=== PATIENT | female | born 2000 ===

== ENCOUNTER 2018-09-18 11:42 | Inpatient (IN) | payer SELFPAY ==
[2018-09-18] MEDS ORDERED: Carboprost Tromethamine 250 MCG/1 ML Amp IM PRN (22:52)
[2018-09-18] MEDS ORDERED: Misoprostol 200 MCG Tab PO PRN (22:52)
[2018-09-18] MEDS ORDERED: Lidocaine 1% 50 ML MDV INJECT PRN (22:52)
[2018-09-18] MEDS ORDERED: Sodium Chloride 0.9% 2.5 ML Syringe FLUSH PRN (22:52)
[2018-09-18] MEDS ORDERED: Butorphanol 1 MG/ML SDV IVPUSH PRN (22:52)
[2018-09-18] MEDS ORDERED: Ondansetron 4 MG/2 ML SDV IV PRN (22:52)
[2018-09-18] MEDS ORDERED: Sodium Chloride 0.9% 10 ML SDV IV PRN (22:52)
[2018-09-18] MEDS ORDERED: Tranexamic Acid 1,000 MG in Sodium Chloride 0.9% 100 ML IV PRN (22:52)
[2018-09-18] MEDS ORDERED: Sodium Chloride 0.9% 10 ML Syringe FLUSH PRN (22:52)
[2018-09-18] MEDS ORDERED: Methylergonovine 0.2 MG/1 ML Amp IM PRN (22:52)
[2018-09-18] MEDS ORDERED: Ampicillin 2 GM in Sodium Chloride 0.9% 100 ML IV ONE (22:52)
[2018-09-18] MEDS ORDERED: Water For Irrigation,Sterile 1,000 ML Container IRR PRN (22:52)
[2018-09-18] MEDS ORDERED: Lactated Ringers 1,000 ML IV SCH (23:00)
[2018-09-18] MEDS ORDERED: Oxytocin/0.9 % Sodium Chloride 30 UNIT/500 ML BAG IV SCH (23:00)
[2018-09-19] MEDS: Ampicillin 1 GM in Sodium Chloride 0.9% 50 ML IV SCH ×2 (03:49→07:45)
--- NOTE | 2018-09-19 09:15 | PCM.LDHP ---
L&D History of Present Illness - General Date of Service: 09/19/18 Admit Problem/Dx: Patient Status Order with Admit Dx/Problem 09/18/18 21:56 Patient Status [ADT] Routine 09/18/18 22:52 Patient Status [ADT] Routine Admission Diagnosis/Problem Admission Diagnosis/Problem Source of Information: Patient History Limitations: Reports: No Limitations - History of Present Illness Improves with: Reports: None Worsens with: Reports: None Associated Symptoms: Reports: N - Related Data Allergies/Adverse Reactions: Allergies Allergy/AdvReac Type Severity Reaction Status Date / Time No Known Allergies Allergy Verified 09/18/18 21:55 Past Medical History - Past Health History Medical/Surgical History: Denies Medical/Surgical History HEENT History: Reports: None Cardiovascular History: Reports: None Respiratory History: Reports: None Gastrointestinal History: Reports: None Genitourinary History: Reports: None HEAD OF ART History: Reports: Musculoskeletal History: Reports: None Neurological History: Reports: None Psychiatric History: Reports: None Endocrine/Metabolic History: Reports: None Hematologic History: Reports: None Immunologic History: Reports: None Oncologic (Cancer) History: Reports: None Dermatologic History: Reports: None - Infectious Disease History Infectious Disease History: Reports: None - Past Surgical History Head Surgeries/Procedures: Reports: None HEENT Surgical History: Reports: None GI Surgical History: Reports: None Female Surgical History: Reports: None Endocrine Surgical History: Reports: None Neurological Surgical History: Reports: None Musculoskeletal Surgical History: Reports: None Oncologic Surgical History: Reports: None Dermatological Surgical History: Reports: None Social & Family History - Family History HEENT: Reports: None Cardiac: Reports: Other (See Below) Other Cardiac Family History: Low blood pressure Respiratory: Reports: None GI: Reports: None : Reports: None OBGYN: Reports: None Neurological: Reports: None Psychiatric: Reports: None Endocrine/Metabolic: Reports: None Hematologic: Reports: None Immunologic: Reports: None Dermatologic: Reports: None Oncologic: Reports: None - Tobacco Use Smoking Status *Q: Never Smoker Second Hand Smoke Exposure: No - Caffeine Use Caffeine Use: Reports: Coffee, Soda - Recreational Drug Use Recreational Drug Use: No H&P Review of Systems - Review of Systems: Review Of Systems: See Below General: Reports: No Symptoms HEENT: Reports: No Symptoms Pulmonary: Reports: No Symptoms Cardiovascular: Reports: No Symptoms Gastrointestinal: Reports: No Symptoms Genitourinary: Reports: No Symptoms Musculoskeletal: Reports: No Symptoms Skin: Reports: No Symptoms Psychiatric: Reports: No Symptoms Neurological: Reports: No Symptoms Hematologic/Lymphatic: Reports: No Symptoms Immunologic: Reports: No Symptoms L&D Exam - Exam Exam: See Below - Vital Signs Weight: 83.007 kg - OB Specific Contraction Intensity: Moderate Movement: Active Heart Tones: Present Presentation: Vertex - Keenan Score Keenan Score Cervix Position: Anterior Keenan Score Consistency: Soft Keenan Score Effacement: >80% Keenan Score Dilation: > 5 cm Keenan Score 's Station: -1 ,0 Keenan Score Total: 12 - Exam General: Alert, Oriented HEENT: PERRLA, Conjunctiva Clear, EACs Clear, EOMI, Hearing Intact, Mucosa Moist & [place], Nares Patent, Normal Nasal Septum, Posterior Pharynx Clear, TMs Clear Neck: Supple, Trachea Midline Lungs: Clear to Auscultation, Normal Respiratory Effort Cardiovascular: Regular Rate, Regular Rhythm GI/Abdominal Exam: Normal Bowel Sounds, Soft, Non-Tender, No Organomegaly, No Distention, No Abnormal Bruit, No Mass, Pelvis Stable Rectal Exam: Normal Exam, Normal Rectal Tone Genitourinary: Normal external exam, Normal bimanual exam, Normal speculum exam Back Exam: Normal Inspection, Full Range of Motion Extremities: Normal Inspection, Normal Range of Motion, Non-Tender, No Pedal Edema, Normal Capillary Refill Skin: Warm, Dry, Intact Neurological: Cranial Nerves Intact, Reflexes Equal Bilateral Psychiatric: Alert, Normal Affect, Normal Mood - Patient Data Lab Results Last 24 hrs: Laboratory Results - last 24 hr 09/18/18 09/18/18 Range/Units 23:22 23:22 WBC 9.71 (4.0-11.0) K/uL RBC 4.25 L (4.30-5.90) M/uL Hgb 13.6 (12.0-16.0) g/dL Hct 39.9 (36.0-46.0) % MCV 93.9 (80.0-98.0) fL MCH 32.0 (27.0-32.0) pg MCHC 34.1 (31.0-37.0) g/dL RDW Std Deviation 42.0 (28.0-62.0) fl RDW Coeff of Faizan 13 (11.0-15.0) % Plt Count 241 (150-400) K/uL MPV 11.80 (7.40-12.00) fL Nucleated RBC % 0.0 /100WBC Nucleated RBCs # 0 K/uL Blood Type O POSITIVE Antibody Screen NEGATIVE Result Diagrams: 09/18/18 23:22 Problem List Initiated/Reviewed/Updated: Yes Orders Last 24hrs: Active Orders 24 hr Category Date Time Status Patient Status [ADT] Routine ADT 09/18/18 22:52 Active May Shower [RC] ASDIRECTED Care 09/18/18 22:52 Active Notify Provider [RC] PRN Care 09/18/18 22:52 Active Up ad Lizzeth [RC] ASDIRECTED Care 09/18/18 22:52 Active Vital Signs [RC] PER UNIT ROUTINE Care 09/18/18 21:56 Active Vital Signs [RC] PER UNIT ROUTINE Care 09/18/18 22:52 Active Ampicillin 1 gm Med 09/19/18 03:45 Active Sodium Chloride 0.9% [Normal Saline] 50 ml IV Q4H Butorphanol [Stadol] Med 09/18/18 22:52 Active 1 mg IVPUSH Q1H PRN Carboprost Tromethamine [Hemabate DS] Med 09/18/18 22:52 Active 250 mcg IM ASDIRECTED PRN Lactated Ringers [Ringers, Lactated] 1,000 ml Med 09/18/18 23:00 Active IV ASDIRECTED Lidocaine 1% [Xylocaine 1%] Med 09/18/18 22:52 Active 50 ml INJECT ONETIME PRN Methylergonovine [Methergine] Med 09/18/18 22:52 Active 0.2 mg IM ASDIRECTED PRN Ondansetron [Zofran] Med 09/18/18 22:52 Active 4 mg IV Q6H PRN Oxytocin/0.9 % Sodium Chloride [Oxytocin 30 Unit/500 ML Med 09/18/18 23:00 Active -NS] 30 unit in 500 ml IV TITRATE Sodium Chloride 0.9% [Normal Saline] Med 09/18/18 22:52 Active 10 ml IV ASDIRECTED PRN Sodium Chloride 0.9% [Saline Flush] Med 09/18/18 22:52 Active 10 ml FLUSH ASDIRECTED PRN Sodium Chloride 0.9% [Saline Flush] Med 09/18/18 22:52 Active 2.5 ml FLUSH ASDIRECTED PRN Tranexamic Acid [Cyklokapron] 1,000 mg Med 09/18/18 22:52 Active Sodium Chloride 0.9% [Normal Saline] 100 ml IV ONETIME Water For Irrigation,Sterile [Sterile Water for Med 09/18/18 22:52 Active Irrigation] 1,000 ml IRR ASDIRECTED PRN miSOPROStol [Cytotec] Med 09/18/18 22:52 Active 200 mcg PO ONETIME PRN Scalp Electrode [WOMSER] Per Unit Routine Oth 09/18/18 22:52 Ordered Peripheral IV Insertion Adult [OM.PC] Routine Oth 09/18/18 22:52 Ordered Resuscitation Status Routine Resus Stat 09/18/18 21:56 Ordered Medication Orders Butorphanol Tartrate (Stadol) 1 mg IVPUSH Q1H PRN PRN Reason: Pain Carboprost Tromethamine (Hemabate Ds) 250 mcg IM ASDIRECTED PRN PRN Reason: Post Hemorrhage Tranexamic Acid 1,000 mg/ (Sodium Chloride) 110 mls @ 660 mls/hr IV ONETIME PRN PRN Reason: Bleeding Lactated Ringer's (Ringers, Lactated) 1,000 mls @ 150 mls/hr IV ASDIRECTED [facility] Last Admin: 09/18/18 23:28 Dose: 150 mls/hr Oxytocin/Sodium Chloride (Oxytocin 30 Unit/500 Ml-Ns) 30 unit in 500 mls @ 999 mls/hr IV TITRATE [facility] Ampicillin Sodium 1 gm/ Sodium (Chloride) 50 mls @ 100 mls/hr IV Q4H [facility] Last Admin: 09/19/18 07:45 Dose: 100 mls/hr Infusion: 09/19/18 04:19 Dose: 100 mls/hr Admin: 09/19/18 03:49 Dose: 100 mls/hr Lidocaine HCl (Xylocaine 1%) 50 ml INJECT ONETIME PRN PRN Reason: Laceration repair Methylergonovine Maleate (Methergine) 0.2 mg IM ASDIRECTED PRN PRN Reason: Post Hemorrhage Misoprostol (Cytotec) 200 mcg PO ONETIME PRN PRN Reason: Post Hemorrhage Ondansetron HCl (Zofran) 4 mg IV Q6H PRN PRN Reason: Nausea/Vomiting Sodium Chloride (Saline Flush) 10 ml FLUSH ASDIRECTED PRN PRN Reason: Keep Vein Open Sodium Chloride (Saline Flush) 2.5 ml FLUSH ASDIRECTED PRN PRN Reason: Keep Vein Open Sodium Chloride (Normal Saline) 10 ml IV ASDIRECTED PRN PRN Reason: IV Use Sterile Water (Sterile Water For Irrigation) 1,000 ml IRR ASDIRECTED PRN PRN Reason: delivery
[2018-09-19] MEDS ORDERED: Acetaminophen 500 MG Tab PO PRN ×2 (11:29)
[2018-09-19] MEDS ORDERED: Bisacodyl 10 MG Supp RECTAL PRN (11:29)
[2018-09-19] MEDS ORDERED: Ibuprofen 800 MG Tab PO PRN (11:29)
[2018-09-19] MEDS ORDERED: Lanolin 100% Cream 7 GM Tube TOP PRN (11:29)
[2018-09-19] MEDS ORDERED: Ibuprofen 400 MG Tab PO PRN (11:29)
[2018-09-19] MEDS ORDERED: oxyCODONE 5 MG Tab PO PRN (11:29)
[2018-09-19] MEDS ORDERED: Witch Hazel Medicated Pads 40/Jar TOP PRN (11:29)
[2018-09-19] MEDS ORDERED: Docusate Sodium 100 MG Cap PO PRN (11:29)
[2018-09-19] MEDS ORDERED: Benzocaine/Menthol 20%-0.5% Spray 78 GM Cannister TOP PRN (11:29)
--- NOTE | 2018-09-19 16:11 | OR ---
SURGEON: Dimas Rojas MD DATE OF PROCEDURE: Ms. Gil is a 18-year-old primigravida. She is followed in our clinic. 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 She is term. She is admitted in active labor. At the time of the admission, she was 4 cm complete, vertex. Her GBS status was unknown at this time, so we started her on antibiotic as per protocol. The patient declined to have epidural. She has had regular contractions. She progressed to 7, complete vertex, and I did an artificial rupture of the membrane and clear fluid. The patient continued to progress. Then, she eventually became complete-complete and she was able to accomplish normal spontaneous vaginal delivery. The perineum was intact. There was no labial, perineal, or vaginal laceration. Fetus cried immediately, score and the weight were not available at this time. The placenta delivered spontaneous, complete, and intact without any problem. ESTIMATED BLOOD LOSS: 250 to 300 mL in this . COMPLICATIONS: There was no complication in the care, the labor process, and the delivery. EVIE / GORDO /[id number]
--- NOTE | 2018-09-20 09:41 | PCM.PNPP ---
- General Info Date of Service: 09/20/18 Functional Status: Reports: Pain Controlled - Review of Systems General: Reports: No Symptoms HEENT: Reports: No Symptoms Pulmonary: Reports: No Symptoms Cardiovascular: Reports: No Symptoms Gastrointestinal: Reports: No Symptoms Genitourinary: Reports: No Symptoms Musculoskeletal: Reports: No Symptoms Skin: Reports: No Symptoms Neurological: Reports: No Symptoms Psychiatric: Reports: No Symptoms - General Info Date of Service: 09/20/18 - Patient Data Vital Signs - Most Recent: Last Vital Signs Temp 36.7 C 09/20/18 07:20 Pulse 94 09/20/18 07:20 Resp 16 09/20/18 07:20 BP 122/72 09/20/18 07:20 Pulse Ox 97 09/20/18 07:20 Weight - Most Recent: 83.007 kg Lab Results - Last 24 Hours: Laboratory Results - last 24 hr 09/20/18 Range/Units 05:20 Hgb 10.2 L (12.0-16.0) g/dL Hct 30.3 L (36.0-46.0) % Med Orders - Current: Current Medications Acetaminophen (Tylenol Extra Strength) 500 mg PO Q4H PRN PRN Reason: Pain Acetaminophen (Tylenol Extra Strength) 1,000 mg PO Q4H PRN PRN Reason: Pain Benzocaine/Menthol (Dermoplast Pain Relief 20%-0.5% [place]) 78 gm TOP ASDIRECTED PRN PRN Reason: Perineal Comfort Measure Bisacodyl (Dulcolax) 10 mg RECTAL ONETIME PRN PRN Reason: Constipation Butorphanol Tartrate (Stadol) 1 mg IVPUSH Q1H PRN PRN Reason: Pain Carboprost Tromethamine (Hemabate Ds) 250 mcg IM ASDIRECTED PRN PRN Reason: Post Hemorrhage Docusate Sodium (Colace) 100 mg PO BID PRN PRN Reason: Constipation Emollient Ointment (Lansinoh Hpa) 0 gm TOP ASDIRECTED PRN PRN Reason: Sore Nipples Last Admin: 09/19/18 14:27 Dose: 1 applicful Tranexamic Acid 1,000 mg/ (Sodium Chloride) 110 mls @ 660 mls/hr IV ONETIME PRN PRN Reason: Bleeding Lactated Ringer's (Ringers, Lactated) 1,000 mls @ 150 mls/hr IV ASDIRECTED [facility] Last Admin: 09/18/18 23:28 Dose: 150 mls/hr Oxytocin/Sodium Chloride (Oxytocin 30 Unit/500 Ml-Ns) 30 unit in 500 mls @ 999 mls/hr IV TITRATE [facility] Ampicillin Sodium 1 gm/ Sodium (Chloride) 50 mls @ 100 mls/hr IV Q4H [facility] Last Admin: 09/19/18 07:45 Dose: 100 mls/hr Ibuprofen (Motrin) 400 mg PO Q4H PRN PRN Reason: Pain Ibuprofen (Motrin) 800 mg PO Q6H PRN PRN Reason: Pain Lidocaine HCl (Xylocaine 1%) 50 ml INJECT ONETIME PRN PRN Reason: Laceration repair Methylergonovine Maleate (Methergine) 0.2 mg IM ASDIRECTED PRN PRN Reason: Post Hemorrhage Last Admin: 09/19/18 11:59 Dose: 0.2 mg Misoprostol (Cytotec) 200 mcg PO ONETIME PRN PRN Reason: Post Hemorrhage Ondansetron HCl (Zofran) 4 mg IV Q6H PRN PRN Reason: Nausea/Vomiting Oxycodone HCl (Oxycodone) 5 mg PO Q2H PRN PRN Reason: Pain Sodium Chloride (Saline Flush) 10 ml FLUSH ASDIRECTED PRN PRN Reason: Keep Vein Open Sodium Chloride (Saline Flush) 2.5 ml FLUSH ASDIRECTED PRN PRN Reason: Keep Vein Open Sodium Chloride (Normal Saline) 10 ml IV ASDIRECTED PRN PRN Reason: IV Use Sterile Water (Sterile Water For Irrigation) 1,000 ml IRR ASDIRECTED PRN PRN Reason: delivery Witch Darya (Tucks) 1 pad TOP ASDIRECTED PRN PRN Reason: comfort care Last Admin: 09/19/18 14:27 Dose: 1 applic Discontinued Medications Ampicillin Sodium 2 gm/ Sodium (Chloride) 100 mls @ 200 mls/hr IV ONETIME ONE Stop: 09/18/18 23:21 Last Admin: 09/18/18 23:46 Dose: 200 mls/hr - Infant Interaction Infant Disposition, : in Room with Family Infant Interaction: Holding Infant Feeding: Attempted ; Nursed Fair/Poor Support Person: - Recovery Exam Fundal Tone: Firm Fundal Level: 1 Fingerbreadths Below Umbilicus Fundal Placement: Midline Lochia Amount: Scant, Small Lochia Color: Rubra/Red Perineum Description: Edematous Episiotomy/Laceration: None Bladder Status: Voiding Urinary Elimination: Voided - Exam General: Alert, Oriented HEENT: Pupils Equal Neck: Supple Lungs: Clear to Auscultation, Normal Respiratory Effort Cardiovascular: Regular Rate, Regular Rhythm GI/Abdominal Exam: Normal Bowel Sounds, Soft, Non-Tender, No Organomegaly, No Distention, No Abnormal Bruit, No Mass, Pelvis Stable Extremities: Normal Inspection, Normal Range of Motion, Non-Tender, No Pedal Edema, Normal Capillary Refill Skin: Warm, Dry, Intact Wound/Incisions: Healing Well Neurological: No New Focal Deficit Psy/Mental Status: Alert, Normal Affect, Normal Mood - Problem List Review Problem List Initiated/Reviewed/Updated: Yes - My Orders Last 24 Hours: My Active Orders 09/19/18 11:29 Acetaminophen [Tylenol Extra Strength] 1,000 mg PO Q4H PRN Acetaminophen [Tylenol Extra Strength] 500 mg PO Q4H PRN Benzocaine/Menthol [Dermoplast Pain Relief 20%-0.5% [place]] 78 gm TOP ASDIRECTED PRN Bisacodyl [Dulcolax] 10 mg RECTAL ONETIME PRN Docusate Sodium [Colace] 100 mg PO BID PRN Ibuprofen [Motrin] 400 mg PO Q4H PRN Ibuprofen [Motrin] 800 mg PO Q6H PRN Lanolin [Lansinoh HPA] See Dose Instructions TOP ASDIRECTED PRN Witch Darya [Tucks] 1 pad TOP ASDIRECTED PRN oxyCODONE 5 mg PO Q2H PRN 09/19/18 11:30 Patient Status [ADT] Routine May Shower [RC] ASDIRECTED Up ad Lizzeth [RC] ASDIRECTED Vital Signs [RC] PER UNIT ROUTINE Assess Lochia [WOMSER] Per Unit Routine Assess Uterine Involution [WOMSER] Per Unit Routine Peripheral IV Discontinue [OM.PC] Routine - Assessment Assessment:: S/P doing well - Plan Plan:: Sens home today.
== END 2018-09-20 14:30 | disposition home or self-care (01) | DRG 807 ==
LOC: MW.OB 11:42 → OBSVTOIN 09-19 11:42 → MW.OB 09-19 18:22
PROVIDERS: ADMIT Obstetrics & Gynecology; ATTEND Advanced Practice Midwife
PROC: 10907ZC Drainage of Amniotic Fluid, Therapeutic from Products of Conception, Via Natural or Artificial Opening (ICD-10-PCS; principal; 2018-09-19)
PROC: 10E0XZZ Delivery of Products of Conception, External Approach (ICD-10-PCS; principal; 2018-09-19)
DX: O80 Encounter for full-term uncomplicated delivery (principal); Z37.0 Single live birth; Z3A.39 39 weeks gestation of pregnancy
CPT/HCPCS: 36415; 59025; 59409; 85014; 85018; 85027; 86850; 86900; 86901; A9270-GY; J0290; J2210; J7030; J7050; J7120

== ENCOUNTER 2020-07-10 06:56 | Inpatient (IN) | payer SELFPAY ==
[2020-07-10] MEDS ORDERED: Methylergonovine 0.2 MG/1 ML Amp IM PRN (07:39)
[2020-07-10] MEDS ORDERED: Ondansetron 4 MG/2 ML SDV IVPUSH PRN (07:39)
[2020-07-10] MEDS ORDERED: Tranexamic Acid 1,000 MG in Sodium Chloride 0.9% 100 ML IV PRN (07:39)
[2020-07-10] MEDS ORDERED: Misoprostol 200 MCG Tab PO PRN (07:39)
[2020-07-10] MEDS ORDERED: Sodium Chloride 0.9% 10 ML Syringe FLUSH PRN (07:39)
[2020-07-10] MEDS ORDERED: Lidocaine 1% 50 ML MDV INJECT PRN (07:39)
[2020-07-10] MEDS ORDERED: Butorphanol 1 MG/ML SDV IVPUSH PRN (07:39)
[2020-07-10] MEDS ORDERED: Nalbuphine 10 MG/1 ML Vial IVPUSH PRN (07:39)
[2020-07-10] MEDS ORDERED: Sodium Chloride 0.9% 2.5 ML Syringe FLUSH PRN (07:39)
[2020-07-10] MEDS ORDERED: Carboprost Tromethamine 250 MCG/1 ML Amp IM PRN (07:39)
[2020-07-10] MEDS ORDERED: Sodium Chloride 0.9% 10 ML SDV IV PRN (07:39)
[2020-07-10] MEDS ORDERED: Water For Irrigation,Sterile 1,000 ML Container IRR PRN (07:39)
[2020-07-10] MEDS ORDERED: Lactated Ringers 1,000 ML IV SCH (07:45)
--- NOTE | 2020-07-10 08:41 | PCM.LDHP ---
L&D History of Present Illness - General Date of Service: 07/10/20 Admit Problem/Dx: Patient Status Order with Admit Dx/Problem 07/10/20 07:39 Patient Status [ADT] Routine Admission Diagnosis/Problem Admission Diagnosis/Problem 07/10/20 08:36 Louise is a 19 yo at 40+1 weeks gestation (JOSSUE(US) 07/09/2020) that presents to L&D today with C/O increasing consistent uterine contractions every 3-4 min, difficult to breathe through per patient report. 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 Patient seen in office , third trimester transfer of care from [facility] [place] Reports adequate movement. Denies ciro vaginal bleeding and LOF at this time. O pos, RI, GBS neg. EFW via Leopolds 7+ lbs. Medical history unremarkable, h/o x 1. NKDA. Medications: PNV. Patient has no other complaints or concerns at this time. 07/10/20 08:41 Source of Information: Patient History Limitations: Reports: No Limitations - History of Present Illness Improves with: Reports: None Worsens with: Reports: None Associated Symptoms: Reports: N - Related Data Allergies/Adverse Reactions: Allergies Allergy/AdvReac Type Severity Reaction Status Date / Time No Known Allergies Allergy Verified 09/18/18 21:55 Past Medical History - Past Health History Medical/Surgical History: Denies Medical/Surgical History HEENT History: Reports: None Cardiovascular History: Reports: None Respiratory History: Reports: None Gastrointestinal History: Reports: None Genitourinary History: Reports: None 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 LMP (Approximate): Musculoskeletal History: Reports: None Neurological History: Reports: None Psychiatric History: Reports: None Endocrine/Metabolic History: Reports: None Hematologic History: Reports: None Immunologic History: Reports: None Oncologic (Cancer) History: Reports: None Dermatologic History: Reports: None - Infectious Disease History Infectious Disease History: Reports: None - Past Surgical History Head Surgeries/Procedures: Reports: None HEENT Surgical History: Reports: None GI Surgical History: Reports: None Female Surgical History: Reports: None Endocrine Surgical History: Reports: None Neurological Surgical History: Reports: None Musculoskeletal Surgical History: Reports: None Oncologic Surgical History: Reports: None Dermatological Surgical History: Reports: None Social & Family History - Family History HEENT: Reports: None Cardiac: Reports: Other (See Below) Other Cardiac Family History: Low blood pressure Respiratory: Reports: None GI: Reports: None : Reports: None OBGYN: Reports: None Neurological: Reports: None Psychiatric: Reports: None Endocrine/Metabolic: Reports: None Hematologic: Reports: None Immunologic: Reports: None Dermatologic: Reports: None Oncologic: Reports: None - Tobacco Use Tobacco Use Status *Q: Never Tobacco User - Caffeine Use Caffeine Use: Reports: Coffee, Soda - Alcohol Use Alcohol Use History: No - Recreational Drug Use Recreational Drug Use: No H&P Review of Systems - Review of Systems: Review Of Systems: Comprehensive ROS is negative, except as noted in HPI. General: Reports: No Symptoms HEENT: Reports: No Symptoms Pulmonary: Reports: No Symptoms Cardiovascular: Reports: No Symptoms Gastrointestinal: Reports: No Symptoms Genitourinary: Reports: No Symptoms Musculoskeletal: Reports: No Symptoms Skin: Reports: No Symptoms Psychiatric: Reports: No Symptoms Neurological: Reports: No Symptoms Hematologic/Lymphatic: Reports: No Symptoms Immunologic: Reports: No Symptoms L&D Exam - Exam Exam: See Below - Vital Signs Vital Signs: VSS, afebrile. See flowsheet. Weight: 180 lb - OB Specific Fundal Height In cm: 39 Contraction Duration (sec): 60-80 Contraction Frequency (min): 3-5 Contraction Intensity: Moderate to Strong Movement: Active Heart Tones: Present Heart Tones per Min: 130 Heart Rate (FHR) Variability: Moderate (6-25 bmp) Presentation: Vertex (via SVE) - Keenan Score Keenan Score Cervix Position: Posterior Keenan Score Consistency: Soft Keenan Score Effacement: >80% Keenan Score Dilation: > 5 cm Keenan Score 's Station: -1 ,0 Keenan Score Total: 10 - Exam General: Alert, Oriented, Cooperative, Mild Distress HEENT: Hearing Intact, Mucosa Moist & [place], PERRLA Neck: Supple, Trachea Midline Lungs: Clear to Auscultation, Normal Respiratory Effort Cardiovascular: Regular Rate, Regular Rhythm GI/Abdominal Exam: Normal Bowel Sounds, Soft, Non-Tender, No Organomegaly, No Distention Rectal Exam: Deferred Genitourinary: Normal external exam, Normal bimanual exam, Enlarged uterus (Gravid uterus) Back Exam: Normal Inspection, Full Range of Motion Extremities: Normal Inspection, Normal Range of Motion, Non-Tender, No Pedal Edema, Normal Capillary Refill Skin: Warm, Dry, Intact Neurological: Cranial Nerves Intact, Reflexes Equal Bilateral Psychiatric: Alert, Normal Affect, Normal Mood - Patient Data Lab Results Last 24 hrs: Laboratory Results - last 24 hr 07/10/20 07/10/20 Range/Units 07:15 07:15 WBC 13.58 H (4.0-11.0) K/uL RBC 4.37 (4.30-5.90) M/uL Hgb 13.3 (12.0-16.0) g/dL Hct 39.7 (36.0-46.0) % MCV 90.8 (80.0-98.0) fL MCH 30.4 (27.0-32.0) pg MCHC 33.5 (31.0-37.0) g/dL RDW Std Deviation 41.4 (28.0-62.0) fl RDW Coeff of Faizan 13 (11.0-15.0) % Plt Count 278 (150-400) K/uL MPV 11.00 (7.40-12.00) fL Nucleated RBC % 0.0 /100WBC Nucleated RBCs # 0 K/uL Blood Type O POSITIVE Antibody Screen NEGATIVE Result Diagrams: 07/10/20 07:15 - Problem List (1) Uterine contractions SNOMED Code(s): 649377345 ICD Code: [id number] - Status: Acute Priority: High Current Visit: Yes (2) 40 weeks gestation of SNOMED Code(s): 01975302 ICD Code: Z3A.40 - 40 WEEKS GESTATION OF Status: Acute Priority: High Current Visit: Yes Problem List Initiated/Reviewed/Updated: Yes Orders Last 24hrs: Active Orders 24 hr Category Date Time Status Patient Status [ADT] Routine ADT 07/10/20 07:39 Active Heart Tones [RC] CONTINUOUS Care 07/10/20 07:39 Active Non Stress Test [RC] PER UNIT ROUTINE Care 07/10/20 07:39 Active May Shower [RC] ASDIRECTED Care 07/10/20 07:39 Active Notify Provider [RC] PRN Care 07/10/20 07:39 Active Up ad Lizzeth [RC] ASDIRECTED Care 07/10/20 07:39 Active Vaginal Exam [RC] PRN Care 07/10/20 07:39 Active Vital Signs [RC] PER UNIT ROUTINE Care 07/10/20 07:39 Active Regular Diet [DIET] Diet 07/10/20 Breakfast Active CORONAVIRUS COVID-19 ELIAS [MOLEC] Urgent Lab 07/10/20 08:00 Received RPR (SYPHILIS SERO) W/ RFLX [REF] Routine Lab 07/10/20 07:15 Received Butorphanol [Stadol] Med 07/10/20 07:39 Active 1 mg IVPUSH Q1H PRN Carboprost Tromethamine [Hemabate DS] Med 07/10/20 07:39 Active 250 mcg IM ASDIRECTED PRN Lactated Ringers [Ringers, Lactated] 1,000 ml Med 07/10/20 07:45 Active IV ASDIRECTED Lidocaine 1% [Xylocaine 1%] Med 07/10/20 07:39 Active 50 ml INJECT ONETIME PRN Methylergonovine [Methergine] Med 07/10/20 07:39 Active 0.2 mg IM ASDIRECTED PRN Nalbuphine [Nubain] Med 07/10/20 07:39 Active 10 mg IVPUSH Q1H PRN Ondansetron [Zofran] Med 07/10/20 07:39 Active 4 mg IVPUSH Q6H PRN Oxytocin/0.9 % Sodium Chloride [Oxytocin 30 Unit/500 ML Med 07/10/20 07:45 Active -NS] 30 unit in 500 ml IV TITRATE Sodium Chloride 0.9% [Normal Saline] Med 07/10/20 07:39 Active 10 ml IV ASDIRECTED PRN Sodium Chloride 0.9% [Saline Flush] Med 07/10/20 07:39 Active 10 ml FLUSH ASDIRECTED PRN Sodium Chloride 0.9% [Saline Flush] Med 07/10/20 07:39 Active 2.5 ml FLUSH ASDIRECTED PRN Tranexamic Acid [Cyklokapron] 1,000 mg Med 07/10/20 07:39 Active Sodium Chloride 0.9% [Normal Saline] 100 ml IV ONETIME Water For Irrigation,Sterile [Sterile Water for Med 07/10/20 07:39 Active Irrigation] 1,000 ml IRR ASDIRECTED PRN miSOPROStoL [Cytotec] Med 07/10/20 07:39 Active 200 mcg PO ONETIME PRN Scalp Electrode [WOMSER] Per Unit Routine Oth 07/10/20 07:39 Ordered Peripheral IV Insertion Adult [OM.PC] Routine Oth 07/10/20 07:39 Ordered Resuscitation Status Routine Resus Stat 07/10/20 07:39 Ordered Medication Orders Butorphanol Tartrate (Butorphanol 1 Mg/Ml Sdv) 1 mg IVPUSH Q1H PRN PRN Reason: Pain Carboprost Tromethamine (Carboprost Tromethamine 250 Mcg/1 Ml Amp) 250 mcg IM ASDIRECTED PRN PRN Reason: Post Hemorrhage Oxytocin/Sodium Chloride (Oxytocin 30 Unit/500 Ml-Ns) 30 unit in 500 mls @ 999 mls/hr IV TITRATE [facility] Tranexamic Acid 1,000 mg/ (Sodium Chloride) 110 mls @ 660 mls/hr IV ONETIME PRN PRN Reason: Bleeding Lactated Ringer's (Ringers, Lactated) 1,000 mls @ 150 mls/hr IV ASDIRECTED [facility] Last Admin: 07/10/20 07:15 Dose: 200 mls/hr Documented by: OVERBAR Lidocaine HCl (Lidocaine 1% 50 Ml Mdv) 50 ml INJECT ONETIME PRN PRN Reason: Laceration repair Methylergonovine Maleate (Methylergonovine 0.2 Mg/1 Ml Amp) 0.2 mg IM ASDIRECTED PRN PRN Reason: Post Hemorrhage Misoprostol (Misoprostol 200 Mcg Tab) 200 mcg PO ONETIME PRN PRN Reason: Post Hemorrhage Nalbuphine HCl (Nalbuphine 10 Mg/1 Ml Vial) 10 mg IVPUSH Q1H PRN PRN Reason: Pain (severe 7-10) Ondansetron HCl (Ondansetron 4 Mg/2 Ml Sdv) 4 mg IVPUSH Q6H PRN PRN Reason: Nausea/Vomiting Sodium Chloride (Sodium Chloride 0.9% 10 Ml Syringe) 10 ml FLUSH ASDIRECTED PRN PRN Reason: Keep Vein Open Sodium Chloride (Sodium Chloride 0.9% 2.5 Ml Syringe) 2.5 ml FLUSH ASDIRECTED PRN PRN Reason: Keep Vein Open Sodium Chloride (Sodium Chloride 0.9% 10 Ml Sdv) 10 ml IV ASDIRECTED PRN PRN Reason: IV Use Sterile Water (Water For Irrigation,Sterile 1,000 Ml Container) 1,000 ml IRR ASDIRECTED PRN PRN Reason: delivery Assessment/Plan Comment:: Admit for observation in anticipation of of term viable . FHR Cat II. Spontaneous contractions noted, but decreased frequency and strength since arrival per patient report. SVE 5-6/80/-1, soft/stretchy, posterior, vertex. AROM completed, small meconium fluid, otherwise uncomplicated, patient tolerated well. Expectant management, reassess cervical dilation ~12:00 pm. If no change has been make, may administer pitocin per orders. May ambulate and hydrotherapy as desired after reactive NST achieved; repeat NST per orders. May receive epidural if desired. See new orders. Dr. Rojas notified and agreeable with POC.
[2020-07-10] MEDS: Oxytocin/0.9 % Sodium Chloride 30 UNIT/500 ML BAG IV SCH ×2 (10:32→11:02)
[2020-07-10] MEDS ORDERED: Lanolin 100% Cream 7 GM Tube TOP PRN (10:52)
[2020-07-10] MEDS ORDERED: Benzocaine/Menthol 20%-0.5% Spray 78 GM Cannister TOP PRN (10:52)
[2020-07-10] MEDS ORDERED: Docusate Sodium 100 MG Cap PO PRN (10:52)
[2020-07-10] MEDS ORDERED: oxyCODONE 5 MG Tab PO PRN (10:52)
[2020-07-10] MEDS ORDERED: Ibuprofen 800 MG Tab PO PRN (10:52)
[2020-07-10] MEDS ORDERED: Bisacodyl 10 MG Supp RECTAL PRN (10:52)
[2020-07-10] MEDS ORDERED: Witch Hazel Medicated Pads 40/Jar TOP PRN (10:52)
[2020-07-10] MEDS ORDERED: Ibuprofen 400 MG Tab PO PRN (10:52)
[2020-07-10] MEDS ORDERED: Acetaminophen 500 MG Tab PO PRN ×2 (10:52)
[2020-07-10] MEDS ORDERED: Oxytocin/0.9 % Sodium Chloride 30 UNIT/500 ML BAG ONE (10:57)
--- NOTE | 2020-07-10 13:28 | PCM.DEL ---
L & D Note - General Info Date of Service: 07/10/20 Mother's Due Date: 07/09/20 - Delivery Note Labor: Spontaneous, Augmented by ARM Delivery Outcome: Livebirth Delivery Method: Spontaneous Vaginal Delivery-Single Delivery Mode: Spontaneous Presentation: Right Occiput Anterior (ERYN) (via SVE) Nuchal Cord: None Anesthesia Type: None Episiotomy Type: None Laceration: None Placenta: Intact, Spontaneous Cord: 3 Vessels Resuscitation Needed: No Sully: Bulb Syringe, Stimulated, Warmed, [place] Used Score 1 min: 7 Score 5 min: 8 Second Stage Interventions: Reports: Encouragement Given, Pushing Effectively, Pushing, Stirrups/Leg Supports Delivery Comments (Free Text/Narrative):: Louise is a 19 yo current S/P of term, viable NBF at 40+1 weeks gestation (JOSSUE(US) 07/09/2020) after presenting to L&D today in active spontaneous labor. Pain well controlled with breathing techniques, unmedicated. O pos, RI, GBS neg. Cephalic presentation. head delivered ERYN with compound left hand spontaneously, body following shortly after with the next push. Thick meconium fluid and terminal meconium noted. NBF placed to maternal abdomen, warmed, dried, stimulated with spontaneous cries. Umbilical cord left intact for ~2 min, clamped x 2, cut by FOB. Pitocin bolus commenced, gentle cord traction applied for active third stage management. Placenta birthed ~8-9 min S/P NBF, intact, Heath, 3VC. Perineum inspected, intact. Uterus firm @U-1. Scant to small vaginal bleeding noted. EBL 200 ml. APGARS 7/8. weight 7 lb 4 oz. 07/10/20 08:4 - General Info Date of Service: 07/10/20 Admission Dx/Problem (Free Text): Patient Status Order with Admit Dx/Problem 07/10/20 07:39 Patient Status [ADT] Routine Admission Diagnosis/Problem Admission Diagnosis/Problem 07/10/20 08:36 Louise is a 19 yo at 40+1 weeks gestation (JOSSUE(US) 07/09/2020) that presents to L&D today with C/O increasing consistent uterine contractions every 3-4 min, difficult to breathe through per patient report. Desires to utilize partner today for second cutter. Patient seen in office 3-, third trimester transfer of care from [place] [facility] [place] Reports adequate movement. Denies ciro vaginal bleeding and LOF at this time. O pos, RI, GBS neg. EFW via Leopolds 7+ lbs. Medical history unremarkable, h/o x 1. NKDA. Medications: PNV. Patient has no other complaints or concerns at this time. 07/10/20 08:41 Functional Status: Reports: Pain Controlled, Tolerating Diet, Ambulating, Urinating - Review of Systems General: Reports: No Symptoms HEENT: Reports: No Symptoms Pulmonary: Reports: No Symptoms Cardiovascular: Reports: No Symptoms Gastrointestinal: Reports: No Symptoms Genitourinary: Reports: No Symptoms Musculoskeletal: Reports: No Symptoms Skin: Reports: No Symptoms Neurological: Reports: No Symptoms Psychiatric: Reports: No Symptoms - Patient Data Vitals - Most Recent: VSS, afebrile. See flowsheet. Weight - Most Recent: 180 lb Lab Results Last 24 Hours: Laboratory Results - last 24 hr 07/10/20 07/10/20 07/10/20 Range/Units 07:15 07:15 08:00 WBC 13.58 H (4.0-11.0) K/uL RBC 4.37 (4.30-5.90) M/uL Hgb 13.3 (12.0-16.0) g/dL Hct 39.7 (36.0-46.0) % MCV 90.8 (80.0-98.0) fL MCH 30.4 (27.0-32.0) pg MCHC 33.5 (31.0-37.0) g/dL RDW Std Deviation 41.4 (28.0-62.0) fl RDW Coeff of Faizan 13 (11.0-15.0) % Plt Count 278 (150-400) K/uL MPV 11.00 (7.40-12.00) fL Nucleated RBC % 0.0 /100WBC Nucleated RBCs # 0 K/uL SARS-CoV-2 RNA (ELIAS) NEGATIVE (NEGATIVE) Blood Type O POSITIVE Antibody Screen NEGATIVE Med Orders - Current: Current Medications Acetaminophen (Acetaminophen 500 Mg Tab) 500 mg PO Q4H PRN PRN Reason: Pain Acetaminophen (Acetaminophen 500 Mg Tab) 1,000 mg PO Q4H PRN PRN Reason: Pain Benzocaine/Menthol (Benzocaine/Menthol 20%-0.5% Se[place]our 78 Gm Cannister) 78 gm TOP ASDIRECTED PRN PRN Reason: Perineal Comfort Measure Bisacodyl (Bisacodyl 10 Mg Supp) 10 mg RECTAL ONETIME PRN PRN Reason: Constipation Docusate Sodium (Docusate Sodium 100 Mg Cap) 100 mg PO BID PRN PRN Reason: Constipation Emollient Ointment (Lanolin 100% Cream 7 Gm Tube) 0 gm TOP ASDIRECTED PRN PRN Reason: Sore Nipples Ibuprofen (Ibuprofen 400 Mg Tab) 400 mg PO Q4H PRN PRN Reason: Pain Ibuprofen (Ibuprofen 800 Mg Tab) 800 mg PO Q6H PRN PRN Reason: Pain Oxycodone HCl (Oxycodone 5 Mg Tab) 5 mg PO Q2H PRN PRN Reason: Pain Witch Darya (Witch Darya Medicated Pads 40/Jar) 1 pad TOP ASDIRECTED PRN PRN Reason: comfort care Discontinued Medications Butorphanol Tartrate (Butorphanol 1 Mg/Ml Sdv) 1 mg IVPUSH Q1H PRN PRN Reason: Pain Carboprost Tromethamine (Carboprost Tromethamine 250 Mcg/1 Ml Amp) 250 mcg IM ASDIRECTED PRN PRN Reason: Post Hemorrhage Oxytocin/Sodium Chloride (Oxytocin 30 Unit/500 Ml-Ns) 30 unit in 500 mls @ 999 mls/hr IV TITRATE [facility] Last Admin: 07/10/20 11:02 Dose: 500 mls/hr Documented by: Tranexamic Acid 1,000 mg/ (Sodium Chloride) 110 mls @ 660 mls/hr IV ONETIME PRN PRN Reason: Bleeding Lactated Ringer's (Ringers, Lactated) 1,000 mls @ 150 mls/hr IV ASDIRECTED [facility] Last Admin: 07/10/20 07:15 Dose: 200 mls/hr Documented by: Oxytocin/Sodium Chloride (Oxytocin 30 Unit/500 Ml-Ns) Confirm Administered Dose 30 unit in 500 mls @ as directed .ROUTE .[facility] Stop: 07/10/20 10:58 Lidocaine HCl (Lidocaine 1% 50 Ml Mdv) 50 ml INJECT ONETIME PRN PRN Reason: Laceration repair Methylergonovine Maleate (Methylergonovine 0.2 Mg/1 Ml Amp) 0.2 mg IM ASDIRECTED PRN PRN Reason: Post Hemorrhage Misoprostol (Misoprostol 200 Mcg Tab) 200 mcg PO ONETIME PRN PRN Reason: Post Hemorrhage Nalbuphine HCl (Nalbuphine 10 Mg/1 Ml Vial) 10 mg IVPUSH Q1H PRN PRN Reason: Pain (severe 7-10) Ondansetron HCl (Ondansetron 4 Mg/2 Ml Sdv) 4 mg IVPUSH Q6H PRN PRN Reason: Nausea/Vomiting Sodium Chloride (Sodium Chloride 0.9% 10 Ml Syringe) 10 ml FLUSH ASDIRECTED PRN PRN Reason: Keep Vein Open Sodium Chloride (Sodium Chloride 0.9% 2.5 Ml Syringe) 2.5 ml FLUSH ASDIRECTED PRN PRN Reason: Keep Vein Open Sodium Chloride (Sodium Chloride 0.9% 10 Ml Sdv) 10 ml IV ASDIRECTED PRN PRN Reason: IV Use Sterile Water (Water For Irrigation,Sterile 1,000 Ml Container) 1,000 ml IRR ASDIRECTED PRN PRN Reason: delivery - Exam General: Alert, Oriented, Cooperative, No Acute Distress HEENT: Pupils Equal, Mucous Membr. Moist/[place] Neck: Supple Lungs: Clear to Auscultation, Normal Respiratory Effort Cardiovascular: Regular Rate, Regular Rhythm GI/Abdominal Exam: Normal Bowel Sounds, Soft, Non-Tender, No Organomegaly, No Distention (Female) Exam: Normal External Exam, Enlarged Uterus ( uterus, firm @U-1), Vaginal Bleeding (Scant to small rubra lochia, no clots.) Back Exam: Normal Inspection, Full Range of Motion Extremities: Normal Inspection, Normal Range of Motion, Non-Tender, No Pedal Edema, Normal Capillary Refill Skin: Warm, Dry, Intact Neurological: No New Focal Deficit Psy/Mental Status: Alert, Normal Affect, Normal Mood - Problem List & Annotations (1) (spontaneous vaginal delivery) SNOMED Code(s): 894729935 Code(s): O80 - ENCOUNTER FOR FULL-TERM UNCOMPLICATED DELIVERY Status: Acute Priority: High Current Visit: Yes (2) Lactating mother SNOMED Code(s): 611576208, 978253323 Code(s): Z39.1 - ENCOUNTER FOR CARE AND EXAMINATION OF LACTATING MOTHER Status: Acute Priority: High Current Visit: Yes - Problem List Review Problem List Initiated/Reviewed/Updated: Yes - My Orders Last 24 Hours: My Active Orders 07/10/20 10:52 Patient Status [ADT] Routine May Shower [RC] ASDIRECTED Up ad Lizzeth [RC] ASDIRECTED Vital Signs [RC] PER UNIT ROUTINE Acetaminophen [Tylenol Extra Strength] 1,000 mg PO Q4H PRN Acetaminophen [Tylenol Extra Strength] 500 mg PO Q4H PRN Benzocaine/Menthol [Dermoplast Pain Relief 20%-0.5% Seymour] 78 gm TOP DIRECTED PRN Docusate Sodium [Colace] 100 mg PO BID PRN Ibuprofen [Motrin] 400 mg PO Q4H PRN Ibuprofen [Motrin] 800 mg PO Q6H PRN Lanolin [Lansinoh HPA] See Dose Instructions TOP ASDIRECTED PRN bisacodyL [Dulcolax] 10 mg RECTAL ONETIME PRN oxyCODONE 5 mg PO Q2H PRN witch Darya [Tucks] 1 pad TOP ASDIRECTED PRN Assess Lochia [WOMSER] Per Unit Routine Assess Uterine Involution [WOMSER] Per Unit Routine Ice Therapy [OM.PC] Per Unit Routine Perineal Care [OM.PC] Per Unit Routine Peripheral IV Discontinue [OM.PC] Routine Sitz Bath [OM.PC] Per Unit Routine Resuscitation Status Routine 07/10/20 10:53 Cooling Warming Measures [RC] ASDIRECTED 07/10/20 Lunch Regular Diet [DIET] 07/11/20 05:11 HEMOGLOBIN/HEMATOCRIT,HH [HEME] Timed - Plan Plan:: Admit inpatient to unit S/P of term, viable NBF. Regular diet as tolerated. May ambulate with assistance when desired. If patient does not void within 64hours S/P delivery, notify provider. support may be provided if desired or needed. H/H in am. See new orders. Dr. Rojas notified and agreeable with POC.
--- NOTE | 2020-07-11 09:34 | PCM.DCSUM1 ---
Discharge Summary - Hospital Course Free Text/Narrative:: Louise is a 19 yo current PPD1 S/P of term, viable NBF at 40+1 weeks gestation (JOSSUE(US) 07/09/2020) after presenting to L&D today in active spontaneous labor. O pos, RI, GBS neg. Patient has no complaints or concerns at this time. Patient is exclusively well, resting comfortably in bed with in arms currently well latched to left breast. Patient reports she is eating, voiding, ambulating independently and without difficulty. Patient denies any problems or concerns at this time except mild-moderate intermittent uterine cramping relieved with Ibuprofen. Patient reports small vaginal bleeding with no clots. Patient verbalizes her readiness to be discharged home today. Diagnosis: Stroke: No - Discharge Data Discharge Date: 07/11/20 Discharge Disposition: Home, Self-Care 01 Condition: Good - Referral to Home Health Primary Care Physician: PCP None - Discharge Diagnosis/Problem(s) (1) (spontaneous vaginal delivery) SNOMED Code(s): 771009574 ICD Code: O80 - ENCOUNTER FOR FULL-TERM UNCOMPLICATED DELIVERY Status: Acute Priority: High Current Visit: Yes (2) Lactating mother SNOMED Code(s): 188862459, [id number] ICD Code: Z39.1 - ENCOUNTER FOR CARE AND EXAMINATION OF LACTATING MOTHER Status: Acute Priority: High Current Visit: Yes - Patient Instructions Diet: Regular Diet as Tolerated, Drink 8-10+ Glasses/Day Activity: As Tolerated, No Strenuous Activities, Rest and Relax Today Driving: May Drive Today Showering/Bathing: May Shower Showering/Bathing, Other: May sitz bath for perineal comfort Notify Provider of: Fever, Increased Pain, Swelling and Redness, Drainage, Cristobal sea and/or Vomiting - Discharge Plan *PRESCRIPTION DRUG MONITORING PROGRAM REVIEWED*: No *COPY OF PRESCRIPTION DRUG MONITORING REPORT IN PATIENT MELE: No Prescriptions/Med Rec: Ibuprofen [Motrin] 800 mg PO Q8H PRN #90 tablet PRN Reason: Pain Home Medications: Home Meds Ibuprofen [Motrin] 800 mg PO Q8H PRN #90 tablet 07/11/20 [Rx] Oxygen Therapy Mode: Room Air - Discharge Summary/Plan Comment DC Time >30 min.: Yes Discharge Summary/Plan Comment: Discussed warning S/Ss, when to call for help. RTO in 6 weeks for visit, or sooner if problems arise. - General Info Date of Service: 07/11/20 Admission Dx/Problem (Free Text: Patient Status Order with Admit Dx/Problem 07/10/20 07:39 Patient Status [ADT] Routine Admission Diagnosis/Problem Admission Diagnosis/Problem 07/10/20 08:36 Louise is a 19 yo at 40+1 weeks gestation (JOSSUE(US) 07/09/2020) that presents to L&D today with C/O increasing consistent uterine contractions every 3-4 min, difficult to breathe through per patient report. 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 [facility] seen in [facility] Reports adequate movement. Denies ciro vaginal bleeding and LOF at this time. O pos, RI, GBS neg. EFW via [place] 7+ lbs. Medical history unremarkable, h/o x 1. NKDA. Medications: PNV. Patient has no other complaints or concerns at this time. 07/10/20 08:41 Functional Status: Reports: Pain Controlled, Tolerating Diet, Ambulating, Urinating - Review of Systems General: Reports: No Symptoms HEENT: Reports: No Symptoms Pulmonary: Reports: No Symptoms Cardiovascular: Reports: No Symptoms Gastrointestinal: Reports: No Symptoms Genitourinary: Reports: No Symptoms Musculoskeletal: Reports: No Symptoms Skin: Reports: No Symptoms Neurological: Reports: No Symptoms Psychiatric: Reports: No Symptoms - Patient Data Vitals - Most Recent: Last Vital Signs Temp 98.4 F 07/11/20 08:24 Pulse 84 07/11/20 08:24 Resp 16 07/11/20 08:24 BP 119/71 07/11/20 08:24 Pulse Ox 95 07/11/20 08:24 Weight - Most Recent: 180 lb Lab Results - Last 24 hrs: Laboratory Results - last 24 hr 07/10/20 07/11/20 Range/Units 08:00 05:40 Hgb 11.8 L (12.0-16.0) g/dL Hct 35.5 L (36.0-46.0) % SARS-CoV-2 RNA (ELIAS) NEGATIVE (NEGATIVE) Med Orders - Current: Current Medications Acetaminophen (Acetaminophen 500 Mg Tab) 500 mg PO Q4H PRN PRN Reason: Pain Acetaminophen (Acetaminophen 500 Mg Tab) 1,000 mg PO Q4H PRN PRN Reason: Pain Benzocaine/Menthol (Benzocaine/Menthol 20%-0.5% [place] 78 Gm Cannister) 78 gm TOP ASDIRECTED PRN PRN Reason: Perineal Comfort Measure Bisacodyl (Bisacodyl 10 Mg Supp) 10 mg RECTAL ONETIME PRN PRN Reason: Constipation Docusate Sodium (Docusate Sodium 100 Mg Cap) 100 mg PO BID PRN PRN Reason: Constipation Emollient Ointment (Lanolin 100% Cream 7 Gm Tube) 0 gm TOP ASDIRECTED PRN PRN Reason: Sore Nipples Ibuprofen (Ibuprofen 400 Mg Tab) 400 mg PO Q4H PRN PRN Reason: Pain Ibuprofen (Ibuprofen 800 Mg Tab) 800 mg PO Q6H PRN PRN Reason: Pain Last Admin: 07/10/20 21:36 Dose: 800 mg Documented by: Oxycodone HCl (Oxycodone 5 Mg Tab) 5 mg PO Q2H PRN PRN Reason: Pain Witch Darya (Witch Darya Medicated Pads 40/Jar) 1 pad TOP ASDIRECTED PRN PRN Reason: comfort care Discontinued Medications Butorphanol Tartrate (Butorphanol 1 Mg/Ml Sdv) 1 mg IVPUSH Q1H PRN PRN Reason: Pain Carboprost Tromethamine (Carboprost Tromethamine 250 Mcg/1 Ml Amp) 250 mcg IM ASDIRECTED PRN PRN Reason: Post Hemorrhage Oxytocin/Sodium Chloride (Oxytocin 30 Unit/500 Ml-Ns) 30 unit in 500 mls @ 999 mls/hr IV TITRATE [facility] Last Admin: 07/10/20 11:02 Dose: 500 mls/hr Documented by: Tranexamic Acid 1,000 mg/ (Sodium Chloride) 110 mls @ 660 mls/hr IV ONETIME PRN PRN Reason: Bleeding Lactated Ringer's (Ringers, Lactated) 1,000 mls @ 150 mls/hr IV ASDIRECTED [facility] Last Admin: 07/10/20 07:15 Dose: 200 mls/hr Documented by: Oxytocin/Sodium Chloride (Oxytocin 30 Unit/500 Ml-Ns) Confirm Administered Dose 30 unit in 500 mls @ as directed .ROUTE .STK-MED ONE Stop: 07/10/20 10:58 Last Admin: 07/11/20 02:34 Dose: Not Given Documented by: Lidocaine HCl (Lidocaine 1% 50 Ml Mdv) 50 ml INJECT ONETIME PRN PRN Reason: Laceration repair Methylergonovine Maleate (Methylergonovine 0.2 Mg/1 Ml Amp) 0.2 mg IM ASDIRECTED PRN PRN Reason: Post Hemorrhage Misoprostol (Misoprostol 200 Mcg Tab) 200 mcg PO ONETIME PRN PRN Reason: Post Hemorrhage Nalbuphine HCl (Nalbuphine 10 Mg/1 Ml Vial) 10 mg IVPUSH Q1H PRN PRN Reason: Pain (severe 7-10) Ondansetron HCl (Ondansetron 4 Mg/2 Ml Sdv) 4 mg IVPUSH Q6H PRN PRN Reason: Nausea/Vomiting Sodium Chloride (Sodium Chloride 0.9% 10 Ml Syringe) 10 ml FLUSH ASDIRECTED PRN PRN Reason: Keep Vein Open Sodium Chloride (Sodium Chloride 0.9% 2.5 Ml Syringe) 2.5 ml FLUSH ASDIRECTED PRN PRN Reason: Keep Vein Open Sodium Chloride (Sodium Chloride 0.9% 10 Ml Sdv) 10 ml IV ASDIRECTED PRN PRN Reason: IV Use Sterile Water (Water For Irrigation,Sterile 1,000 Ml Container) 1,000 ml IRR ASDIRECTED PRN PRN Reason: delivery - Exam General: Reports: Alert, Oriented, Cooperative, No Acute Distress HEENT: Reports: Pupils Equal, Mucous Membr. Moist/[place] Neck: Reports: Supple Lungs: Reports: Clear to Auscultation, Normal Respiratory Effort Cardiovascular: Reports: Regular Rate, Regular Rhythm GI/Abdominal Exam: Normal Bowel Sounds, Soft, Non-Tender, No Organomegaly, No Distention (Female) Exam: Normal External Exam, Enlarged Uterus ( uterus, firm @U), Vaginal Bleeding (Small to moderate rubra lochia, no nclots.) Rectal (Female) Exam: Deferred Back Exam: Reports: Normal Inspection, Full Range of Motion Extremities: Normal Inspection, Normal Range of Motion, Non-Tender, No Pedal Edema, Normal Capillary Refill Skin: Reports: Warm, Dry, Intact Neurological: Reports: No New Focal Deficit Psy/Mental Status: Reports: Alert, Normal Affect, Normal Mood
== END 2020-07-11 13:07 | disposition home or self-care (01) | DRG 807 ==
LOC: MW.OBCHECK 06:56 → MW.OB 06:57 → MW.OBCHECK 07:39 → OBSVTOIN 10:32 → MW.OB 14:27
PROVIDERS: ADMIT Obstetrics & Gynecology; ATTEND Obstetrics & Gynecology
PROC: 10907ZC Drainage of Amniotic Fluid, Therapeutic from Products of Conception, Via Natural or Artificial Opening (ICD-10-PCS; principal; 2020-07-10)
PROC: 10E0XZZ Delivery of Products of Conception, External Approach (ICD-10-PCS; 2020-07-10)
DX: O48.0 Post-term pregnancy (principal); Z37.0 Single live birth; Z3A.40 40 weeks gestation of pregnancy; O77.0 Labor and delivery complicated by meconium in amniotic fluid; Z20.822 Contact with and (suspected) exposure to COVID-19
CPT/HCPCS: 36415; 59025; 59409; 85014; 85018; 85027; 86592; 86850; 86900; 86901; A9270-GY; J2590; J7120; U0002

== ENCOUNTER 2022-06-08 00:12 | Inpatient (IN) | payer SELFPAY ==
[2022-06-08] MEDS ORDERED: Sodium Chloride 0.9% 20 ML SDV IV PRN (00:55)
[2022-06-08] MEDS ORDERED: Water For Irrigation,Sterile 1,000 ML Container IRR PRN (00:55)
[2022-06-08] MEDS ORDERED: Methylergonovine 0.2 MG/1 ML Amp IM PRN (00:55)
[2022-06-08] MEDS ORDERED: Misoprostol 25 MCG (1/4 of 100 MCG) Tab VAG PRN ×2 (00:55)
[2022-06-08] MEDS ORDERED: Misoprostol 200 MCG Tab PO PRN (00:55)
[2022-06-08] MEDS ORDERED: Terbutaline 1 MG/ML SDV SUBCUT PRN (00:55)
[2022-06-08] MEDS ORDERED: Misoprostol 25 MCG (1/4 of 100 MCG) Tab PO ONE (00:55)
[2022-06-08] MEDS ORDERED: Sodium Chloride 0.9% 2.5 ML Syringe FLUSH PRN (00:55)
[2022-06-08] MEDS ORDERED: Lidocaine 1% 50 ML MDV INJECT PRN (00:55)
[2022-06-08] MEDS ORDERED: Sodium Chloride 0.9% 10 ML Syringe FLUSH PRN (00:55)
[2022-06-08] MEDS ORDERED: Carboprost Tromethamine 250 MCG/1 ML Amp IM PRN (00:55)
[2022-06-08] MEDS ORDERED: Tranexamic Acid 1,000 MG in Sodium Chloride 0.9% 100 ML IV PRN (00:55)
[2022-06-08] MEDS ORDERED: Oxytocin/0.9 % Sodium Chloride 30 UNIT/500 ML BAG IV SCH ×2 (01:00)
[2022-06-08] MEDS: Lactated Ringers 1,000 ML IV SCH ×3 (02:20→18:17)
[2022-06-08] MEDS: Butorphanol 1 MG/ML SDV IVPUSH PRN ×3 (09:44→18:13)
[2022-06-08] MEDS ORDERED: Ropivacaine HCl/PF 400 MG in Premix Bag 1 BAG EPIDUR SCH (10:30)
[2022-06-08] MEDS ORDERED: ePHEDrine 50 MG/ML SDV IVPUSH PRN ×2 (10:30)
[2022-06-08] MEDS ORDERED: Phenylephrine HCl In 0.9% NaCl 1 MG/10 ML Vial IVPUSH PRN (10:30)
[2022-06-08] MEDS ORDERED: Phenylephrine HCl In 0.9% NaCl 1 MG/10 ML Vial IVPUSH SCH (10:30)
[2022-06-08] MEDS ORDERED: Lanolin 100% Cream 7 GM Tube TOP PRN (19:51)
[2022-06-08] MEDS ORDERED: Bisacodyl 10 MG Supp RECTAL PRN (19:51)
[2022-06-08] MEDS ORDERED: Witch Hazel Medicated Pads 40/Jar TOP PRN (19:51)
[2022-06-08] MEDS ORDERED: Benzocaine/Menthol 20%-0.5% Spray 78 GM Cannister TOP PRN (19:51)
[2022-06-08] MEDS ORDERED: Ibuprofen 400 MG Tab PO PRN (19:51)
[2022-06-08] MEDS ORDERED: Acetaminophen 500 MG Tab PO PRN (19:51)
[2022-06-08] MEDS ORDERED: Docusate Sodium 100 MG Cap PO PRN (19:51)
[2022-06-08] MEDS: Acetaminophen 500 MG Tab PO PRN (20:28)
[2022-06-08] MEDS: Ibuprofen 800 MG Tab PO PRN (20:29)
[2022-06-09] MEDS: Ibuprofen 800 MG Tab PO PRN (09:24)
[2022-06-09] MEDS: Acetaminophen 500 MG Tab PO PRN (11:15)
== END 2022-06-09 22:57 | disposition home or self-care (01) | DRG 807 ==
LOC: MW.OBCHECK 00:12 → MW.OB 00:13 → MW.OBCHECK 00:14 → MW.OB 00:15 → OBSVTOIN 00:55 → MW.OB 22:17
PROVIDERS: ADMIT Obstetrics & Gynecology Obstetrics; ATTEND Obstetrics & Gynecology Obstetrics
PROC: 10E0XZZ Delivery of Products of Conception, External Approach (ICD-10-PCS; principal; 2022-06-08)
PROC: 3E0P7VZ Introduction of Hormone into Female Reproductive, Via Natural or Artificial Opening (ICD-10-PCS; 2022-06-08)
DX: O48.0 Post-term pregnancy (principal); Z37.0 Single live birth; Z3A.40 40 weeks gestation of pregnancy; Z20.822 Contact with and (suspected) exposure to COVID-19
CPT/HCPCS: 36415; 59025; 59409; 59414; 85014; 85018; 85027; 86592; 86850; 86900; 86901; A9270-GY; J0595; J2590; J7120; U0002